=== PATIENT | male | born 1945 | race Caucasian/White ===

== ENCOUNTER → 2016-10-28 | Outpatient (CLI) | payer MEDICARE ==
[~2016-10-28] MED LIST: ASPIRIN81 M1 PO; ZESTRIL10 M2 PO
--- NOTE | ~2016-10-28 | US115 ---
[facility] A Service of [facility] RADIOLOGY TEXT RESULTS PATIENT: CATHY WINTERS LOCATION: [facility] : 47 UNIT #: [id number] AGE: [address]: Ashwin Rodriguez MD SEX: M ORDER DR: [id number] [facility] [address] [place], [place] [address] [id number] O MR#: [id number] Acc #: [id number] NAME: CATHY WINTERS : 1945 SEX: M STUDY DATE/TIME: 10/28/2016 15:22 UNIT: [facility] ROOM: STUDY DESCRIPTION: US Scrotum and Contents Attending Physician: Ashwin Rodriguez M.D. Ordering Physician: Ashwin Rodriguez M.D. Primary Care Physician: Lillian Perez M.D. MEDICAL IMAGING REPORT This report is preliminary unless electronic signature is present EXAM Scrotal Doppler ultrasound 10/28/2016 INDICATIONS Left testicular swelling for the last 5 days. No trauma. FINDINGS Joy-scale, color flow, and spectral Doppler waveform analysis was performed of the scrotum and contents. Both testicles are morphologically normal. There are no intratesticular masses. Both testicles show perfusion by Doppler. Right epididymal head cysts or spermatoceles are present. The largest measures about 3 mm in diameter. There is a large complex hydrocele on the left side and there is a smaller hydrocele on the right side. The left testicle appears somewhat hyperemic, as does the left epididymis. This would suggest epididymal orchitis. IMPRESSION 1. Both testicles show perfusion by Doppler and there are no intratesticular masses. 2. Left side epididymal orchitis with a large complex left-side hydrocele. 3. Small right epididymal head cyst and small right hydrocele. Dictated by... Chris Hess Jr., M.D. THIS IS AN ELECTRONICALLY VERIFIED REPORT Chris Hess Jr., M.D. at 10/28/2016 9:29 PM WESTLEY/stacy TD: 10/28/2016 18:06 JOB #: [id number] [facility] A Service of [facility] RADIOLOGY TEXT RESULTS PATIENT: CATHY WINTERS LOCATION: [facility] #: [id number] : [birth year] UNIT #: [id number] AGE: [address]: Ashwin Rodriguez MD SEX: M ORDER DR: MEDICAL IMAGING REPORT Page 1 of 1 COPY
== END | disposition home or self-care (01) ==
LOC: CGUS 14:47
DX: N50.89 Other specified disorders of the male genital organs (principal); N45.2 Orchitis; N43.3 Hydrocele, unspecified; N50.3 Cyst of epididymis
CPT/HCPCS: 76870; 93976